=== PATIENT | male | born 1980 | race African-American/Black ===

== ENCOUNTER 2018-10-12 10:28 | Emergency (ER) | payer SELFPAY ==
[~2018-10-12] VITALS: Ht 172.7 cm; Wt 74.8 kg
[2018-10-12 10:29] VITALS: BP 132/83
[2018-10-12] MEDS ORDERED: NAPROXEN 500 MG TABLET PO STA (11:25)
[2018-10-12] MEDS ORDERED: HYDROcodone/APAP 5/325MG 1 TAB TABLET PO ONE (11:30)
[2018-10-12] MEDS ORDERED: SMZ/TMP 800/160MG TABLET. PO ONE (11:30)
[2018-10-12] MEDS ORDERED: DIPHTH,PERTUSS(ACELL),TET TOX 0.5 ML DISP.SYRIN. VAX IM ONE (11:30)
[2018-10-12] MEDS ORDERED: SULF1TAB24 PO (11:50)
[2018-10-12] MEDS ORDERED: HYDR-3164 PO (11:50)
--- NOTE | 2018-10-12 11:50 | PHYS DOC ---
Past Medical History Past Medical History: No Pertinent History Past Surgical History: No Surgical History Additional Information: 3 cigarettes daily Alcohol Use: Occasionally Drug Use: None Adult General Chief Complaint Chief Complaint: SKIN PROBLEM HPI HPI Patient is a 38 year old male with no significant medical history who presents to the ED today complaining of left lower quadrant abscess that began 4 days ago , patient stated the abscess came to ahead and he drained a little bit of it. Patient denies any fever. He believes it is from a spider bite but he did not see any spider bite him. Review of Systems Review of Systems Constitutional: Denies fever or chills [] Musculoskeletal: Denies back pain or joint pain [] Integument: Reports left lower quadrant Neurologic: Denies headache, focal weakness or sensory changes [] All other systems were reviewed and found to be within normal limits, except as documented in this note. Current Medications Current Medications Current Medications Medications (Trade) Dose Ordered Sig/Manohar Start Time Stop Time Status Last Admin Dose Admin Acetaminophen/ Hydrocodone Bitart (Lortab 5/325) 2 tab 1X ONCE 10/12/18 11:30 10/12/18 11:31 DC Diphtheria/ Tetanus/Acell Pertussis (Boostrix) 0.5 ml ONCE ONCE 10/12/18 11:30 10/12/18 11:31 DC Naproxen (Naprosyn) 500 mg 1X STAT 10/12/18 11:25 10/12/18 11:26 DC Trimethoprim/ Sulfamethoxazole (Bactrim Ds) 1 tab 1X ONCE 10/12/18 11:30 10/12/18 11:31 DC Allergies Allergies Allergies Coded Allergies Type Severity Reaction Last Updated Verified No Known Drug Allergies 10/12/18 No Physical Exam Physical Exam Constitutional: Well developed, well nourished, no acute distress, non-toxic appearance. [] Skin: Abdomen with hair, Left lower abdomen with an indurated area approximately 2 x 2 centimeters with surrounding cellulitis, the area is warm/ tender to touch and fluctuant the center is open and draining yellow bloody material, I went ahead and expressed as much pus from this area as possibly could, Back: No tenderness, no CVA tenderness. [] Extremities: No tenderness, no cyanosis, no clubbing, ROM intact, no edema. [] Neurologic: Alert and oriented X 3, normal motor function, normal sensory function, no focal deficits noted. [] Psychologic: Affect normal, judgement normal, mood normal. [] Current Patient Data Vital Signs Vital Signs Date Time Temp Pulse Resp B/P (MAP) Pulse Ox O2 Delivery O2 Flow Rate FiO2 10/12/18 10:29 98.4 85 18 132/83 (99) 100 Room Air 98.4 EKG EKG [] Radiology/Procedures Radiology/Procedures Indication: abscess of the left lower quadrant Procedure: The patient was positioned appropriately. Local anesthesia was not applicable. Mild amount of yellow bloody material was expressed. The drainage cavity was irrigated and covered with sterile gauze. The patients tetanus status updated as needed. The patient tolerated the procedure well. Complications: none.[] Course & Med Decision Making Course & Med Decision Making Pertinent Labs and Imaging studies reviewed. (See chart for details) This is a 38-year-old male patient presenting to the ED today with left lower quadrant abscess that was drained by me as noted in procedures. Tetanus was updated. Discharged on Bactrim. Follow-up with primary care doctor in 1-2 weeks. Wound care instructions and return precautions provided. Dragon Disclaimer Dragon Disclaimer This electronic medical record was generated, in whole or in part, using a voice recognition dictation system. Departure Departure Impression: Primary Impression: Abdominal wall abscess Additional Impression: Cellulitis, abdominal wall Disposition: 01 HOME, SELF-CARE Condition: STABLE Referrals: NO PCP (PCP) follow up in 1-2 weeks. Patient Instructions: Abscess, Care After Additional Instructions: You have an abscess on her left lower abdomen that was drained in the emergency room. You can shower, wash the area with regular soap and water and apply warm compresses to the area twice a day. Take the prescribed antibiotics until completed. Follow-up with your doctor in 1-2 weeks, come back to the ED at any point symptoms worsen. Scripts Hydrocodone/Apap 5-325 (NORCO 5-325 TABLET) 1 Each Tablet 1 TAB PO Q6HRS, #8 TAB Prov: HUBER HA APRN 10/12/18 Sulfamethoxazole/Trimethoprim (BACTRIM DS TABLET) 1 Each Tablet 1 TAB PO BID, #20 TAB Prov: HUBER HA RESIDENTIAL DRIVER 10/12/18 Problem Qualifiers HUBER HA APRN Oct 12, 2018 11:50
== END 2018-10-12 12:12 | disposition home or self-care (01) ==
LOC: ER 10:28
DX: L03.311 Cellulitis of abdominal wall (principal); L02.211 Cutaneous abscess of abdominal wall; F17.210 Nicotine dependence, cigarettes, uncomplicated
CPT/HCPCS: 90471; 90715; 99284

== ENCOUNTER 2019-04-03 00:39 | Emergency (ER) | payer SELFPAY ==
[~2019-04-03] VITALS: Ht 170.2 cm; Wt 74.8 kg
[~2019-04-03 00:39] MED LIST: HYDR-3164 PO; SULF1TAB24 PO
[2019-04-03 00:44] VITALS: BP 153/95
[2019-04-03] MEDS ORDERED: CYCL5TAB PO (00:56)
[2019-04-03] MEDS ORDERED: KETOROLAC 30 MG/ML VIAL. IM ONE (01:15)
[2019-04-03] MEDS ORDERED: HYDROcodone/APAP 5/325MG 1 TAB TABLET PO ONE (01:15)
--- NOTE | 2019-04-03 01:15 | PHYS DOC ---
Past Medical History Past Medical History: No Pertinent History Past Surgical History: No Surgical History Alcohol Use: Occasionally Drug Use: None Adult General Chief Complaint Chief Complaint: BACK PAIN OR INJURY HPI HPI Patient is a 38 year old male presented with low back pain onset after sneezing earlier in the day no bowel bladder incontinence no numbness tingling or weakness bilateral low back described as tight and throbbing and worse with moving has not tried anything for relief Review of Systems Review of Systems Constitutional: Denies fever or chills [] Eyes: Denies change in visual acuity, redness, or eye pain [] HENT: Denies nasal congestion or sore throat [] Respiratory: Denies cough or shortness of breath [] Cardiovascular: No additional information not addressed in HPI [] GI: Denies abdominal pain, nausea, vomiting, bloody stools or diarrhea [] Endocrine: Denies polyuria or polydipsia [] All other systems were reviewed and found to be within normal limits, except as documented in this note. Current Medications Current Medications Current Medications Medications (Trade) Dose Ordered Sig/Manohar Start Time Stop Time Status Last Admin Dose Admin Acetaminophen/ Hydrocodone Bitart (Lortab 5/325) 2 tab 1X ONCE 04/03/19 01:15 04/03/19 01:16 Ketorolac Tromethamine (Toradol 30mg Vial) 30 mg 1X ONCE 04/03/19 01:15 04/03/19 01:16 Allergies Allergies Allergies Coded Allergies Type Severity Reaction Last Updated Verified No Known Drug Allergies 10/12/18 No Physical Exam Physical Exam Constitutional: Well developed, well nourished, no acute distress, non-toxic appearance. [] HENT: Normocephalic, atraumatic, bilateral external ears normal, oropharynx moist, no oral exudates, nose normal. [] Eyes: PERRLA, EOMI, conjunctiva normal, no discharge. [] Neck: Normal range of motion, no tenderness, supple, no stridor. [] Cardiovascular:Heart rate regular rhythm, no murmur [] Lungs & Thorax: Bilateral breath sounds clear to auscultation [] Abdomen: Bowel sounds normal, soft, no tenderness, no masses, no pulsatile masses. [] Skin: Warm, dry, no erythema, no rash. [] Back: Bilateral paraspinous tenderness noted Extremities: No tenderness, no cyanosis, no clubbing, ROM intact, no edema. [] Neurologic: Alert and oriented X 3, normal motor function, normal sensory function, no focal deficits noted. [] Psychologic: Affect normal, judgement normal, mood normal. [] EKG EKG [] Radiology/Procedures Radiology/Procedures [] Course & Med Decision Making Course & Med Decision Making Pertinent Labs and Imaging studies reviewed. (See chart for details) []See nurse's note for complete vitals patient was afebrile. Suspect musculoskeletal strain possible herniated disc but really no radicular symptoms abdomen treatment was provided Dragon Disclaimer Dragon Disclaimer This electronic medical record was generated, in whole or in part, using a voice recognition dictation system. Departure Departure Impression: Primary Impression: Back pain Disposition: 01 HOME, SELF-CARE Condition: STABLE Patient Instructions: Back Pain, Adult, [id number] Scripts Cyclobenzaprine Hcl (CYCLOBENZAPRINE HCL) 5 Mg Tablet 5 MG PO PRN TID PRN for PAIN, #15 TAB Prov: RUBIO MOSS MD 04/03/19 RUBIO MOSS MD Apr 03, 2019 01:15
== END 2019-04-03 01:05 | disposition home or self-care (01) ==
LOC: ER 00:39
DX: M54.5 Low back pain (principal); R06.7 Sneezing
CPT/HCPCS: 96372; 99283; J1885

== ENCOUNTER 2019-05-05 19:58 | Emergency (ER) | payer SELFPAY ==
[~2019-05-05] VITALS: Ht 170.2 cm; Wt 65.8 kg
[~2019-05-05 19:58] MED LIST changes: +CYCL5TAB PO
[2019-05-05 20:10] VITALS: BP 139/86
[2019-05-05] MEDS ORDERED: BUTA1TAB23 PO (20:41)
[2019-05-05] MEDS ORDERED: ORPH100T PO (20:41)
--- NOTE | 2019-05-05 20:41 | PHYS DOC ---
Past Medical History Past Medical History: No Pertinent History Past Surgical History: No Surgical History Smoking: Cigarettes, Less than 1pk/day (occassional) Alcohol Use: Occasionally Drug Use: None Adult General Chief Complaint Chief Complaint: HEADACHE HPI HPI Mr. Clay is a 38yo AAM w/ no significant PMH presents w/ headache and right upper thoracic pain. The patient admits to being in [facility] at the time the headache and right upper thoracic pain but denies trauma or other identifying inciting trigger. The headache is constant, throbbing, 10/10, radiates into his neck, and is associated with intermitting b/l eye pain. Has been unable to sleep due to the intensity of the pain. Denies aura or light sensitivity. Ibuprofen and Tylenol have not help. Has experienced headaches in the past but never to this severity. Denies fever/chills. Denies rash. Review of Systems Review of Systems Constitutional: Denies fever or chills Eyes: Reports b/l eye photophobia. Denies redness HENT: Denies nasal congestion or sore throat Respiratory: Reports non-productive cough. Denies shortness of breath Cardiovascular: Denies chest pain or palpitations GI: Denies abdominal pain, nausea, or vomiting Musculoskeletal: Reports neck tenderness, right scapular tenderness and right knee pain. Integument: Denies rash or skin lesions Neurologic: Reports headache. Denies focal weakness or sensory changes Complete systems were reviewed and found to be within normal limits, except as documented in this note. Current Medications Current Medications Current Medications Medications (Trade) Dose Ordered Sig/Manohar Start Time Stop Time Status Last Admin Dose Admin Dexamethasone (Decadron) 10 mg 1X ONCE 05/05/19 20:45 05/05/19 20:46 DC 05/05/19 20:45 10 MG Ketorolac Tromethamine (Toradol 30mg Vial) 30 mg 1X ONCE 05/05/19 20:45 05/05/19 20:46 DC 05/05/19 20:45 30 MG Orphenadrine Citrate (Norflex) 60 mg 1X ONCE 05/05/19 20:45 05/05/19 20:46 DC 05/05/19 20:45 60 MG Allergies Allergies Allergies Coded Allergies Type Severity Reaction Last Updated Verified No Known Drug Allergies 10/12/18 No Physical Exam Physical Exam Constitutional: Well developed, well nourished, no acute distress, non-toxic appearance HENT: Normocephalic, atraumatic, oropharynx moist Eyes: PERRL, EOMI, conjunctiva normal, no discharge Neck: Normal range of motion, mild right paraspinal neck tenderness, supple, no cervical lymphadenopathy, no meningeal signs Cardiovascular: Heart rate normal, regular rhythm Lungs & Thorax: Bilateral breath sounds clear to auscultation throughout, no wheezing Abdomen: Soft, no tenderness Skin: Warm, dry, no erythema, no rash Back: right upper thoracic paraspinal tenderness, no CVA tenderness Extremities: Right lateral intrascapular muscle tenderness, ROM intact, no edema Neurologic: Alert and oriented X 3, normal motor function, normal sensory function, no focal deficits noted, cerebellar function intact Psychologic: Affect normal, judgement normal Current Patient Data Vital Signs Vital Signs Date Time Temp Pulse Resp B/P (MAP) Pulse Ox O2 Delivery O2 Flow Rate FiO2 05/05/19 20:10 98.8 65 16 139/86 (103) 98 Room Air 98.8 EKG EKG [] Radiology/Procedures Radiology/Procedures [] Course & Med Decision Making Course & Med Decision Making Mr. Clay presented w/ headache, neck pain, and right thoracic paraspinal and intrascapular pain. Ketoralac, Norflex, and Decadron administered. ICE applied. Patient counseled on importance of operating a motor vehicle or machinery while taking Norflex. Patient stable for discharge with outpatient follow-up with PCP. Discussed findings and plan with patient, who acknowledges understanding and agreement. Dragon Disclaimer Dragon Disclaimer This electronic medical record was generated, in whole or in part, using a voice recognition dictation system. Departure Departure Impression: Primary Impression: Headache Disposition: 01 HOME, SELF-CARE Condition: STABLE Referrals: NO PCP (PCP) KALYN PONCE MD Patient Instructions: Tension Headache, [id number] Scripts Orphenadrine Citrate (ORPHENADRINE CITRATE) 100 Mg Tablet.er 100 MG PO BID PRN for MUSCLE PAIN, #14 TAB Prov: WALT NICHOLS DO 05/05/19 Butalb/Acetaminophen/Caffeine ([id number] 50-325-40) 1 Each Tablet 1 EACH PO Q6HRS PRN for HEADACHE, #14 TAB Prov: WALT NICHOLS DO 05/05/19 Problem Qualifiers Primary Impression: Headache Headache type: tension-type Headache chronicity pattern: acute headache Intractability: not intractable Qualified Codes: G44.209 - Tension-type headache, unspecified, not intractable WALT NICHOLS DO May 05, 2019 20:41
[2019-05-05] MEDS ORDERED: KETOROLAC 30 MG/ML VIAL. IM ONE (20:45)
[2019-05-05] MEDS ORDERED: DEXAMETHASONE 4 MG TABLET PO ONE (20:45)
[2019-05-05] MEDS ORDERED: ORPHENADRINE CITRATE 60 MG/2 ML VIAL. IM ONE (20:45)
== END 2019-05-05 21:20 | disposition home or self-care (01) ==
LOC: ER 19:58
DX: R51 Headache (principal); M54.6 Pain in thoracic spine; R05 Cough; M54.2 Cervicalgia; H57.13 Ocular pain, bilateral; F17.210 Nicotine dependence, cigarettes, uncomplicated
CPT/HCPCS: 96372; 99284; J1885; J2360; J8540